=== PATIENT | male | born 2000 | race Caucasian/White ===

== ENCOUNTER 2021-10-23 21:08 | Emergency (ER) | payer BC, SELFPAY ==
[2021-10-23 21:20] VITALS: BP 132/80; BP 137/71; PULSE 112; PULSE 97; RESP 10; RESP 20; TEMP 37.2; O2SAT 100; O2SAT 99
[2021-10-23 21:21] VITALS: PULSE 99; RESP 18; O2SAT 100
--- NOTE | 2021-10-23 22:42 | ED.ALLEREA ---
HPI - Allergic Reaction General Chief complaint: Allergic Reaction Stated complaint: allergic reaction - lip swelling Time Seen by Provider: 10/23/21 22:30 Source: patient History of Present Illness HPI narrative: Patient presents with concern for allergic reaction. Reports he was at work and noted swelling of his lips and hands and rash on his extremities. Reports a history of the same but is unable to identify what his allergens are. Took some Benadryl and came to the ER for further evaluation. Denies any difficulty swallowing or shortness of breath denies any nausea vomiting diarrhea or abdominal pain. Reports a rash to his extremities that is itchy and lip swelling. Related Data Allergies Allergy/AdvReac Type Severity Reaction Status Date / Time No Known Allergies Allergy Mild Verified 04/22/08 20:25 Review of Systems Review of Systems: CONSTITUTIONAL: Denies fever, chills, or sweats. EYES: Denies visual changes, redness, or discharge. ENT: Denies rhinorrhea, congestion, sore throat, or otalgia. CARDIOVASCULAR: Denies chest pain, palpitations, or edema. RESPIRATORY: Denies cough or dyspnea. GASTROINTESTINAL: Denies abdominal pain, nausea, vomiting, or diarrhea. GENITOURINARY: Denies dysuria or hematuria. SKIN: Reports itching rash MUSCULOSKELETAL: Denies back pain, joint pain, or myalgia. NEUROLOGIC: Denies headache, numbness, dizziness, or weakness. PSYCHIATRIC: Denies anxiety or depression. All systems reviewed & are unremarkable except as noted in HPI and below Exam Narrative: GENERAL: Well-appearing, well-nourished, and in no acute distress. HEAD: Normocephalic, atraumatic. EYES: PERRLA and EOMI. ENT: Nares clear, no rhinorrhea or epistaxis. Mucous membranes moist. Mild edema to the lips no uvula swelling NECK: Supple. No masses. No JVD CHEST: Clear to auscultation. No respiratory distress. No wheezes rales or rhonchi HEART: Regular rate and rhythm. No murmur heard. Normal peripheral pulses. ABDOMEN: Soft, nontender, nondistended, normal active bowel sounds. EXTREMITIES: Normal range of motion. No edema. SKIN: Warm, dry. Urticarial rash noted on the extremities NEURO: No focal deficits. Alert and oriented x3. PSYCH: Normal mood and affect. Course Reevaluation(s) Reevaluation #1: Patient reports feeling much improved his rash is improved and is less itchy edema has also improved. Patient is comfortable continuing to monitor his symptoms at home. Date: 10/24/21 Time: 00:29 Vital Signs Vital signs: Vital Signs Temperature 37.2 C 10/23/21 21:20 Pulse Rate 112 H 10/23/21 21:20 Respiratory Rate 20 10/23/21 21:20 Blood Pressure 137/71 10/23/21 21:20 Pulse Oximetry 100 10/23/21 21:20 Temperature 37.2 C 10/23/21 21:20 Pulse Rate 86 10/24/21 00:44 Respiratory Rate 16 10/24/21 00:44 Blood Pressure 111/72 10/24/21 00:44 Pulse Oximetry 98 10/24/21 00:44 MDM - Allergic Reaction MDM Narrative Medical decision making narrative: H&P as above, vss, pt looks clinically well, exam without wheezing or stridor no edema in the posterior pharynx, labs/img considered. symptomatic relief available as needed, patient brought home he was given steroids here on reevaluation pt continues to looks clinically well with improvement in symptoms. Suspect allergic reaction the need to skin, dns airway compromise, anaphylaxis, SJS. plan to tx/monitor as op w/ pcm f/u findings/plan discussed with pt, pt agree/comfortable with plan, return precautions given. Patient reports a history of multiple reactions without clear triggers he was referred to allergy for further evaluation. Discharge Plan Discharge Clinical Impression: Allergic reaction Qualifiers: Encounter type: initial encounter Qualified Code(s): T78.40XA - Allergy, unspecified, initial encounter Patient Disposition: Home, Self-Care Condition: Improved Instructions: Antibiotic Form, Anaphylaxis (ED), Allergies (ED) Additional Instructi
[2021-10-23] MEDS: predniSONE 20 MG TABLET 60 MG PO (22:56)
[2021-10-24] VITALS: BP 119/78; PULSE 90; RESP 18; O2SAT 98
[2021-10-24 00:44] VITALS: BP 111/72; PULSE 86; RESP 16; O2SAT 98
== END 2021-10-24 00:46 | disposition home or self-care (01) ==
PROVIDERS: Emergency Provider Emergency Medicine
DX: T78.40XA Allergy, unspecified, initial encounter (principal)
CPT/HCPCS: 99283; J7512

== ENCOUNTER 2023-08-07 20:30 | Emergency (ER) | payer SELFPAY ==
[2023-08-07 20:35] VITALS: BP 150/90; PULSE 98; RESP 18; TEMP 37; O2SAT 100
--- NOTE | 2023-08-07 22:28 | PC.NURSE ---
patient left department
== END 2023-08-07 22:28 | disposition left against medical advice (07) ==
DX: R22.0 Localized swelling, mass and lump, head (principal)
CPT/HCPCS: 99199